=== PATIENT | male | born 1975 | race Caucasian/White ===

== ENCOUNTER 2018-01-30 18:33 | Emergency (ER) | payer OTHER ==
[~2018-01-30] VITALS: Ht 180.3 cm; Wt 85.3 kg
[~2018-01-30 18:33] MED LIST: HYDR-971 PO; PENI500T PO
[2018-01-30 18:51] VITALS: BP 128/79
--- NOTE | 2018-01-30 19:45 | PHYS DOC ---
Past History Past Medical History: No Pertinent History Past Surgical History: No Surgical History Alcohol Use: None Drug Use: None Adult General Chief Complaint Chief Complaint: RIB PAIN HPI HPI 42-year-old male presents with right rib pain. The patient states that he tripped and some mild 3 days ago and landed on his right side with his arm outstretched striking his ribs on concrete. He presents today because the pain has continued for 3 days. He has pain with deep breathing. He denies any chest pain or shortness of breath. He denies loss of consciousness or head injury. He denies fever or chills. He has no other complaints. Review of Systems Review of Systems Constitutional: Denies fever or chills [] Eyes: Denies change in visual acuity, redness, or eye pain [] HENT: Denies nasal congestion or sore throat [] Respiratory: Denies cough or shortness of breath [] Cardiovascular: No additional information not addressed in HPI [] GI: Denies abdominal pain, nausea, vomiting, bloody stools or diarrhea [] : Denies dysuria or hematuria [] Musculoskeletal: Right rib pain[] Integument: Denies rash or skin lesions [] Neurologic: Denies headache, focal weakness or sensory changes [] Endocrine: Denies polyuria or polydipsia [] All other systems were reviewed and found to be within normal limits, except as documented in this note. Allergies Allergies Allergies Coded Allergies Type Severity Reaction Last Updated Verified No Known Drug Allergies 06/19/14 No Physical Exam Physical Exam Constitutional: Well developed, well nourished, no acute distress, non-toxic appearance. [] HENT: Normocephalic, atraumatic, bilateral external ears normal, oropharynx moist, no oral exudates, nose normal. [] Eyes: PERRLA, EOMI, conjunctiva normal, no discharge. [] Neck: Normal range of motion, no tenderness, supple, no stridor. [] Cardiovascular:Heart rate regular rhythm, no murmur [] Lungs & Thorax: Tenderness over right 10th rib laterally, no ecchymosis.[] Abdomen: Bowel sounds normal, soft, no tenderness, no masses, no pulsatile masses. [] Skin: Warm, dry, no erythema, no rash. [] Back: No tenderness, no CVA tenderness. [] Extremities: No tenderness, no cyanosis, no clubbing, ROM intact, no edema. [] Neurologic: Alert and oriented X 3, normal motor function, normal sensory function, no focal deficits noted. [] Psychologic: Affect normal, judgement normal, mood normal. [] Current Patient Data Vital Signs Vital Signs Date Time Temp Pulse Resp B/P (MAP) Pulse Ox O2 Delivery O2 Flow Rate FiO2 01/30/18 18:51 98.2 58 14 97 Room Air EKG EKG [] Radiology/Procedures Radiology/Procedures [] Impressions: PA chest with 4 views of the right ribs HISTORY: Fell on January 27 with right rib pain. FINDINGS: PA view of the chest demonstrates no focal consolidation or infiltrate. No pleural effusion or pneumothorax. Cardiomediastinal silhouettes are within normal limits. No evidence of a displaced right rib fracture. IMPRESSION: No acute radiographic findings. Electronically signed by: Nga Fine MD (01/30/2018 7:58 PM) [facility] DICTATED AND SIGNED BY: NGA FINE MD DATE: 01/30/181955 CC: SHERLY SHEIKH DO; LASHA ROTHMAN Course & Med Decision Making Course & Med Decision Making Pertinent Labs and Imaging studies reviewed. (See chart for details) The patient's rib x-rays are negative for displaced fracture. He likely still has a bruised rib. He is stable for discharge at this time. I have advised she continue NSAIDs and Tylenol as needed. [] Dragon Disclaimer Dragon Disclaimer This electronic medical record was generated, in whole or in part, using a voice recognition dictation system. Departure Departure: Referrals: LASHA ROTHMAN (PCP) SHERLY SHEIKH DO Jan 30, 2018 19:45
--- NOTE | 2018-01-30 20:02 | RAD ---
PA chest with 4 views of the right ribs HISTORY: Fell on January 27 with right rib pain. FINDINGS: PA view of the chest demonstrates no focal consolidation or infiltrate. No pleural effusion or pneumothorax. Cardiomediastinal silhouettes are within normal limits. No evidence of a displaced right rib fracture. IMPRESSION: No acute radiographic findings. Electronically signed by: Rhett Fine MD (01/30/2018 7:58 PM) [facility]
== END 2018-01-30 20:15 | disposition home or self-care (01) ==
LOC: ER 18:33
DX: R07.81 Pleurodynia (principal); R07.1 Chest pain on breathing; G89.11 Acute pain due to trauma; W01.0XXA Fall on same level from slipping, tripping and stumbling without subsequent striking against object, initial encounter; Y93.89 Activity, other specified; Y92.89 Other specified places as the place of occurrence of the external cause; Y99.8 Other external cause status
CPT/HCPCS: 71101; 99284

== ENCOUNTER → 2019-11-17 | Outpatient (CLI) | payer OTHER ==
[~2019-11-17] MED LIST changes: +HYDR-3165 PO; -HYDR-971 PO
--- NOTE | 2019-11-17 17:18 | RAD ---
EXAM: Left hip, 2 views; lumbar spine, 3 views. HISTORY: Pain. COMPARISON: None. FINDINGS: Left hip: 2 views of the left hip are obtained. There is mild marginal femoral head spurring and decreased femoral head-neck offset with chronic hip impingement. There is no fracture, dislocation or subluxation. Lumbar spine: 3 views of the lumbar spine are obtained. There is lumbar levoscoliosis. There is no significant listhesis. The vertebral bodies are normal in height and the disc spaces are preserved. There is facet arthropathy at the lumbosacral junction. IMPRESSION: 1. Lumbar levoscoliosis and degenerative facet arthropathy at the lumbosacral junction. 2. Mild left hip osteoarthritis and findings consistent with chronic left hip impingement. Electronically signed by: Sarah Zendejas MD (11/17/2019 5:15 PM) [id number]
== END | disposition home or self-care (01) ==
LOC: RAD 16:18
DX: M16.12 Unilateral primary osteoarthritis, left hip (principal); M47.817 Spondylosis without myelopathy or radiculopathy, lumbosacral region; M41.86 Other forms of scoliosis, lumbar region; M25.852 Other specified joint disorders, left hip; Z68.25 Body mass index [BMI] 25.0-25.9, adult
CPT/HCPCS: 72100; 73502

== ENCOUNTER 2020-02-06 21:04 | Observation (INO) | payer OTHER ==
[~2020-02-06] VITALS: Ht 180.3 cm; Wt 81.1 kg
--- NOTE | 2020-02-06 21:09 | PHYS DOC ---
Past History Past Medical History: No Pertinent History Past Surgical History: No Surgical History Alcohol Use: None Drug Use: None Adult General HPI HPI Patient is a 44-year-old male who presents to our facility via EMS for ingestion. Patient actively suicidal, has history of suicidal attempts in the past via overdose ingesting Tylenol at age 16 and other unknown medications in his 20s. Patient has history of depression which he has been treated for on and off the last few years, has not been seeking treatment recently. Cites current long-term relationship with whom he has 3 children with as primary factor for his dysphoric mood and feelings of worthlessness. Patient reports ingesting a "handful" of his friend's 1 mg Valium tablets less than 1 hour ago an attempt to end his life. Patient was in route to local gas station to buy alcoholic beverages and was intercepted when acting somnolent prompting EMS to be called for transport to our facility for evaluation Review of Systems Review of Systems Fourteen body systems of review of systems have been reviewed. See HPI for perti nent positives and negative responses, other izquierdo all other systems are negative, non-pertinent or non-contributory Allergies Allergies Allergies Coded Allergies Type Severity Reaction Last Updated Verified No Known Drug Allergies 06/19/14 No Physical Exam Physical Exam Constitutional: Well developed, poor overall hygiene, well nourished, no acute distress, non-toxic appearance. No signs of trauma HENT: Normocephalic, atraumatic, bilateral external ears normal, oropharynx moist, no oral exudates, nose normal. Eyes: PERRLA, EOMI, conjunctiva normal, no discharge. Neck: Normal range of motion, no tenderness, supple, no stridor. Cardiovascular: Heart rate regular, sinus rhythm, no murmurs rubs or gallops Lungs & Thorax: Bilateral breath sounds clear to auscultation Abdomen: Bowel sounds normal, soft, no tenderness, no masses, no pulsatile masses. Nonsurgical abdomen, no peritoneal signs Skin: Warm, dry, no erythema, no rash. Back: No tenderness, no CVA tenderness. Extremities: No tenderness, no cyanosis, no clubbing, ROM intact, no edema. Neurologic: Alert and oriented X 3, grossly normal motor & sensory function, no focal deficits noted. Psychologic: Affect normal, judgement normal, mood normal. Current Patient Data Vital Signs Vital Signs Date Time Temp Pulse Resp B/P (MAP) Pulse Ox O2 Delivery O2 Flow Rate FiO2 02/06/20 22:47 66 16 86/67 (73) 96 Room Air 02/06/20 21:17 97.8 Lab Results Laboratory Tests Test 02/06/20 21:35 White Blood Count 9.2 x10^3/uL (4.0-11.0) Red Blood Count 5.72 x10^6/uL (4.30-5.70) Hemoglobin 16.6 g/dL (13.0-17.5) Hematocrit 49.7 % (39.0-53.0) Mean Corpuscular Volume 87 fL (79-100) Mean Corpuscular Hemoglobin 29 pg (25-35) Mean Corpuscular Hemoglobin Concent 34 g/dL (31-37) Red Cell Distribution Width 14.1 % (11.5-14.5) Platelet Count 268 x10^3/uL (140-400) Neutrophils (%) (Auto) 55 % (31-73) Lymphocytes (%) (Auto) 35 % (24-48) Monocytes (%) (Auto) 7 % (0-9) Eosinophils (%) (Auto) 2 % (0-3) Basophils (%) (Auto) 1 % (0-3) Neutrophils # (Auto) 5.1 x10^3uL (1.8-7.7) Lymphocytes # (Auto) 3.2 x10^3/uL (1.0-4.8) Monocytes # (Auto) 0.7 x10^3/uL (0.0-1.1) Eosinophils # (Auto) 0.2 x10^3/uL (0.0-0.7) Basophils # (Auto) 0.1 x10^3/uL (0.0-0.2) Sodium Level 139 mmol/L (136-145) Potassium Level 3.4 mmol/L (3.5-5.1) Chloride Level 104 mmol/L (98-107) Carbon Dioxide Level 24 mmol/L (21-32) Anion Gap 11 (6-14) Blood Urea Nitrogen 19 mg/dL (8-26) Creatinine 0.9 mg/dL (0.7-1.3) Estimated GFR (Cockcroft-Gault) 90.8 BUN/Creatinine Ratio 21 (6-20) Glucose Level 107 mg/dL (70-99) Calcium Level 9.7 mg/dL (8.5-10.1) Total Bilirubin 0.3 mg/dL (0.2-1.0) Aspartate Amino Transf (AST/SGOT) 14 U/L (15-37) Alanine Aminotransferase (ALT/SGPT) 24 U/L (16-63) Alkaline Phosphatase 106 U/L (46-116) Total Protein 7.4 g/dL (6.4-8.2) Albumin 4.1 g/dL (3.4-5.0) Albumin/Globulin Ratio 1.2 (1.0-1.7) Salicylates Level 3.3 mg/dL (2.8-20.0) Salicylate Last Dose Date 02-06-20 Salicylate Last Dose Time 2129 Acetaminophen Level < 2.0 mcg/mL (10-30) Acetaminophen Last Dose Date 02-06-20 Acetaminophen Last Dose Time 2129 Ethyl Alcohol Level < 10 mg/dL (0-10) EKG EKG EKG ordered and interpreted by myself at 2125 hrs. as sinus rhythm at 78 bpm, unremarkable intervals, left axis deviation, no ischemic findings, no STEMI Radiology/Procedures Radiology/Procedures PROCEDURE: PORTABLE CHEST 1V Exam: Chest one view INDICATION: Overdose TECHNIQUE: Frontal view of the chest Comparisons: 01/30/2018 FINDINGS: The cardiomediastinal silhouette and pulmonary vessels are within normal limits. Linear bandlike opacity at the left lung base likely representing atelectasis. No pleural effusion IMPRESSION: Left basilar atelectasis. Electronically signed by: Isac Jacobs MD (02/06/2020 9:40 PM) [facility] Heart Score HEART Score for Chest Pain: HEART Score for Chest Pain Response (Comments) Value History Slighlty/Non-Suspicious 0 ECG Normal 0 Age < 45 0 Risk Factors No Risk Factors 0 Total 0 Risk Factors: Risk Factors: DM, Current or recent (<one month) smoker, HTN, HLP, family history of CAD, obesity. Risk Scores: Risk Factors: DM, Current or recent (<one month) smoker, HTN, HLP, family history of CAD, obesity. Course & Med Decision Making Course & Med Decision Making Ambulatory patient seen on immediate ER arrival with EMS present ABCs grossly nonconcerning Comprehensive history and physical exam obtained, subsequent tox work-up pursued Poison control called 2105 hrs., case discussed, reviewed need for comprehensive toxic ingestion work-up and observation. Throughout course of ER stay, patient became more somnolent and hypotensive which did improve with supplemental IV fluids. Given that patient is not medically cleared at this time and it is unknown how long he will metabolize the unknown amount of Valium ingested, I feel he will need to be admitted Dr. Tao was contacted and case discussed, he agreed to admit patient under his care for continued medical management with plans for psychiatric evaluation tomorrow morning once medically cleared. Patient updated of this decision and amenable, all questions and concerns addressed prior to ER departure to [facility] for further medical observation and eventual psychiatric clearance Dragon Disclaimer Dragon Disclaimer This electronic medical record was generated, in whole or in part, using a voice recognition dictation system. Departure Departure: Impression: Primary Impression: Suicidal overdose Additional Impression: History of depression Disposition: ADMITTED INPT THIS HOSP ([facility]) Admitting Physician: Markus Tao Condition: STABLE Referrals: LASHA ROTHMAN (PCP) Problem Qualifiers NEETU RATLIFF DO Feb 06, 2020 21:09
--- NOTE | 2020-02-06 21:43 | RAD ---
Exam: Chest one view INDICATION: Overdose TECHNIQUE: Frontal view of the chest Comparisons: 01/30/2018 FINDINGS: The cardiomediastinal silhouette and pulmonary vessels are within normal limits. Linear bandlike opacity at the left lung base likely representing atelectasis. No pleural effusion IMPRESSION: Left basilar atelectasis. Electronically signed by: Isac Jacobs MD (02/06/2020 9:40 PM) [facility]
[2020-02-06 21:54] LABS: CALCIUM 9.7 mg/dL (8.5-10.1); CREATININE 0.9 mg/dL (0.7-1.3); GFR 90.8; POTASSIUM 3.4 mmol/L (3.5-5.1)
[2020-02-06 21:58] LABS: ACETAMIN < 2.0 mcg/mL (10-30); BASO # 0.1 x10^3/uL (0.0-0.2); BASO % 1 % (0-3); EOS # 0.2 x10^3/uL (0.0-0.7); EOS % 2 % (0-3); HEMATOCRIT 49.7 % (39.0-53.0); HEMOGLOBIN 16.6 g/dL (13.0-17.5); LYMPH # 3.2 x10^3/uL (1.0-4.8); LYMPH % 35 % (24-48); MEAN CORPUSCULAR HEMOGLOBIN 29 pg (25-35); MEAN CORPUSCULAR HGB CONC 34 g/dL (31-37); MEAN CORPUSCULAR VOLUME 87 fL (79-100); MONO # 0.7 x10^3/uL (0.0-1.1); MONO % 7 % (0-9); NEUT # 5.1 x10^3uL (1.8-7.7); NEUT % 55 % (31-73); PLATELET COUNT 268 x10^3/uL (140-400); RED BLOOD COUNT 5.72 x10^6/uL (4.30-5.70); RED CELL DISTRIBUTION WIDTH 14.1 % (11.5-14.5); SALIC 3.3 mg/dL (2.8-20.0); WHITE BLOOD COUNT 9.2 x10^3/uL (4.0-11.0)
[2020-02-06 22:00] LABS: ALBUMIN 4.1 g/dL (3.4-5.0); ALBUMIN/GLOBULIN RATIO 1.2 (1.0-1.7); ETHANOL < 10 mg/dL (0-10); TOTAL BILIRUBIN 0.3 mg/dL (0.2-1.0); TOTAL PROTEIN 7.4 g/dL (6.4-8.2)
--- NOTE | 2020-02-06 22:57 | EKG ---
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
[2020-02-06] MEDS ORDERED: IV NORMAL SALINE 1,000ML 1,000 ML IV ONE (23:00)
[2020-02-06] MEDS ORDERED: FLUMAZENIL 0.5 MG/5 ML VIAL. IV ONE (23:30)
[2020-02-07 00:35] VITALS: BP 108/70
--- NOTE | 2020-02-07 00:35 | NUR ---
Pt admitted to ICU bed 3 via gurney, accompanied by EMS and nursing staff. Pt able to ambulate from gurney to bed independently, steady gait noted. Pt A&Ox4, but noted to be drowsy. Pt is calm and cooperative with staff & cares, but did state that he still had SI thoughts. Pt here for SI/SA and purposeful overdose of "handful of Valium." Pt reports recent increased feelings of depression r/t home stressors and 's decreased functioning r/t MS & CA diagnosis. Pt reports a hx of SA with OD at the age of 16 or 17. Home medications reviewed over the phone with spouse (Rupal) from Rx bottles. Admission assessment and health history reviewed with pt. VSS. POC discussed with pt, mother (Vania) and spouse (Rupal), all verbalized understanding. 1to1 staff at [facility]. Pt was given written information regarding hospital policies, unit procedures and contact persons. Valuables were checked/logged and kept out at nurses station in 2 green belonging bags.
[2020-02-07] MEDS ORDERED: TIZA4TAB2 PO (01:35)
[2020-02-07] MEDS ORDERED: VENL150C6 PO (01:35)
[2020-02-07] MEDS ORDERED: GABA600T7 PO (01:35)
[2020-02-07 03:50] VITALS: BP 105/60
[2020-02-07 06:00] VITALS: BP 91/62
--- NOTE | 2020-02-07 09:59 | NUR ---
0810 pt alert and oriented x4, expresses no suicide thoughts, vital signs stable. 0920 ok to consult [facility] for suicide assessment. Addendum: 02/07/20 at 1030 by OMAR KEY RN 1028 pt wants to be discharged, educated pt on hospital protocols for suicide attempts, [facility] called to set up suicide screen, awaiting a call back for fax number to submit pt info. discussed with pt and he agreed with current plan of care. Addendum: 02/07/20 at 1255 by OMAR KEY RN 1230 pt assessed by [facility]-pt ok to go home, recommended follow up with [facility] out pt, go to ER immediately if feelings of suicide, spend time with family. pt of 1:1 observation. Addendum: 02/07/20 at 1344 by OMAR KEY RN 1315 Pt alert and oriented x4, discharge ppwrk given. pt verbally said he will follow up with [facility], and signed [facility] ppwrk and discharge ppwrk. ride given to pt by security to gas station down the [place].
[2020-02-07 10:32] LABS: BARBITURATES NEG (NEG); BENZODIAZEPINES POS (NEG); CANNABINOIDS POS (NEG); COCAINE NEG (NEG); METHADONE POS (NEG); OPIATES NEG (NEG); PHENCYCLIDINE NEG (NEG)
[2020-02-07 10:35] LABS: AMPHETAMINE/METHAMPHETAMINE NEG (NEG)
[2020-02-07 11:00] VITALS: BP 101/58
--- NOTE | 2020-02-07 11:54 | HP ---
ADMIT DATE: ATTENDING PHYSICIAN: Dr. Uriostegui. CHIEF COMPLAINT: Drug overdose. HISTORY OF PRESENT ILLNESS: The patient is a 44-year-old gentleman admitted to the ED with suicide gesture. He took an unspecified amount of Valium. They were not very high dosage as he was asleep. He did not require any resuscitation. He has a longstanding history of depression, several suicide drug ingestion attempts at age 16 and again is his 20s. He has been involved . He has 3 children. He is not working at this time. He was on route to the [employer] to buy alcohol ____ when acting somnolent. PAST MEDICAL HISTORY: Significant for methadone use, chronic back pain resulting methadone. He has been fired from his pain doctor for other substance abuse. SOCIAL HISTORY: He drinks alcohol, uses marijuana. CURRENT PRESCRIPTION MEDICINES: None. He has been using his common-law 's meds. ALLERGIES: He has no known drug allergies. FAMILY HISTORY: He has no contact with his father. Mother is alive at age 76. REVIEW OF SYSTEMS: Significant for chronic pain syndrome and states he is not suicidal at this time. All other systems reviewed and determined to be negative. PHYSICAL EXAMINATION: GENERAL: When I saw him, this is a pleasant young gentleman. INITIAL VITAL SIGNS: Showed blood pressure 108/70, pulse was 68 and regular. He was afebrile, oxygen saturation 100% on room air. HEENT: Head is without trauma. Pupils are reactive. Sclerae nonicteric. Oropharynx is clear. NECK: Supple, no bruits. LUNGS: Otherwise clear. CARDIOVASCULAR: Showed regular heart tones. No gallops. Peripheral pulses are palpable and full. ABDOMEN: Soft, scaphoid, nontender, no organomegaly. EXTREMITIES: Showed no cyanosis or edema. NEUROLOGIC: Focally intact. Affect is fair. He denies any suicidal ideation. Chest x-ray is clear with minimal atelectasis at the base. LABORATORY DATA: Hemoglobin is 16.6 g/dL with white count of 9200. Chemistry panel unremarkable. Transaminases are normal. ASSESSMENT: 1. A 44-year-old gentleman with suicide gesture, took an unspecified amount of someone else's Valium. 2. Major depression with anxiety. 3. Polysubstance abuse. 4. Chronic pain syndrome with a history of methadone maintenance. PLAN: 1. Admit to the inpatient unit. 2. Diet as tolerated. 3. life sciences manager and [facility] to see the patient to determine whether he is safe for discharge. LILIANE URIOSTEGUI MD DR: SIDDHARTH/kaylene JOB#: [id number] / [id number]
[2020-02-07 12:37] LABS: BACTERIA,URINE 0 /HPF (0-FEW); BILIRUBIN,URINE NEG (NEG); CLARITY,URINE CLEAR; COLOR,URINE YELLOW; GLUCOSE,URINE NEG (NEG); NITRITE,URINE NEG (NEG); RBC,URINE OCC /HPF (0-2); SQUAMOUS EPITHELIAL CELL,UR OCC /LPF; UROBILINOGEN,URINE 0.2 mg/dL (0.2 mg/dL); WBC,URINE OCC /HPF (0-4)
--- NOTE | 2020-02-07 13:26 | DS ---
DATE OF DISCHARGE: 02/07/2020 ATTENDING PHYSICIAN: Dr. Uriostegui. FINAL DISCHARGE DIAGNOSES: 1. A 44-year-old gentleman with suicide attempt, taking an unspecified amount of Valium. 2. Major depression with anxiety. 3. Polysubstance abuse. 4. Chronic pain syndrome with history of methadone maintenance. HISTORY OF PRESENT ILLNESS: This 44-year-old gentleman took an unspecified amount of Valium that was someone else's. It was not a very high dose. He was on his way to the [employer] store. There is a longstanding history of depression, methadone use in the past and polysubstance abuse. He was admitted for further treatment and evaluation. PHYSICAL EXAMINATION: Please see the dictated note. PERTINENT LABORATORY AND X-RAY STUDIES: The chest x-ray on admission showed some atelectasis, but no acute infiltrates identified. Hemoglobin is maintained at 16.6 g/dL, white count 9200. Electrolytes, BUN and creatinine, blood sugar are all within normal range. COURSE IN HOSPITAL: The patient was admitted. He woke up shortly thereafter. He had some IV hydration. He was seen by the [facility]. They interviewed him and felt that he was not suicidal. Therefore, they recommended discharging home. He was stable from a medical standpoint. He was fully ambulatory and alert when I saw him. Blood pressure was 101/58, pulse regular, afebrile, oxygen saturation 96%. On the second hospital day, the patient was discharged home, no new meds. Strong encouragement to follow up with his regular primary care physician. LILIANE URIOSTEGUI MD DR: SIDDHARTH/kaylene JOB#: [id number] / [id number]
== END 2020-02-07 13:10 | disposition home or self-care (01) ==
LOC: ER 21:04 → INTOOBSV 23:25 → ICU 23:25
PROVIDERS: ADMIT Hospitalist; ATTEND Hospitalist
DX: T42.4X2A Poisoning by benzodiazepines, intentional self-harm, initial encounter (principal); F41.8 Other specified anxiety disorders; G89.4 Chronic pain syndrome; F12.90 Cannabis use, unspecified, uncomplicated; F17.210 Nicotine dependence, cigarettes, uncomplicated
CPT/HCPCS: 36415; 71045; 80053; 80307; 80329; 81001; 85025; 93005; 96360; 99285; 99406; G0378; G0480; J7030; G0379

== ENCOUNTER 2020-04-06 00:06 | Emergency (ER) | payer OTHER ==
[~2020-04-06] VITALS: Ht 180.3 cm; Wt 85.1 kg
[~2020-04-06 00:06] MED LIST changes: +GABA600T7 PO; +TIZA4TAB2 PO; +VENL150C6 PO
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
[2020-04-06] MEDS ORDERED: TETANUS AND DIPHTHERIA TOX/PF 0.5 ML VIAL. VAX IM ONE (01:00)
[2020-04-06] MEDS ORDERED: BUPIVACAINE MPF 0.5% 10 ML VIAL. IJ ONE (01:00)
[2020-04-06] MEDS ORDERED: LIDOCAINE 2% 20 ML VIAL. IJ ONE (01:00)
[2020-04-06] MEDS ORDERED: DIPH,PERTUSS(ACELL),TET VAC/PF 0.5 ML SYRINGE. VAX IM ONE (01:30)
[2020-04-06] MEDS ORDERED: cefTRIAXone IM 1 GM VIAL IM ONE (01:30)
[2020-04-06] MEDS ORDERED: CEPH-264 PO (02:20)
[2020-04-06 02:34] VITALS: BP 132/89
--- NOTE | 2020-04-06 04:00 | RAD ---
INDICATION: Reason: cut.and blunt trauma / Spl. Instructions: / History: COMPARISON: None. IMPRESSION: Left hand: 3 views obtained. Comminuted fracture of the second middle phalanx. Electronically signed by: Michael Xiao MD (04/06/2020 3:58 AM) [id number]
== END 2020-04-06 02:29 | disposition home or self-care (01) ==
LOC: ER 00:06
DX: S62.621A Displaced fracture of middle phalanx of left index finger, initial encounter for closed fracture (principal); R20.2 Paresthesia of skin; R06.2 Wheezing; F32.9 Major depressive disorder, single episode, unspecified; F17.210 Nicotine dependence, cigarettes, uncomplicated; W26.8XXA Contact with other sharp object(s), not elsewhere classified, initial encounter; Y93.89 Activity, other specified; Y92.89 Other specified places as the place of occurrence of the external cause; Y99.8 Other external cause status
CPT/HCPCS: 12001; 73130; 90471; 90715; 96372; 99283; J0696

== ENCOUNTER → 2020-05-17 | Outpatient (CLI) | payer OTHER ==
[~2020-05-17] MED LIST changes: +CEPH-264 PO
--- NOTE | 2020-05-17 17:53 | RAD ---
INDICATION: Reason: 2ND DIGIT PAIN / Spl. Instructions: / History: COMPARISON: April 06, 2020 IMPRESSION: Left second digit of hand: 3 views obtained. Repeat demonstration of comminuted fracture of the secon d middle phalanx which appears mildly displaced. The fracture line is still seen without osseous brid ging at this time. Electronically signed by: Michael Xiao MD (05/17/2020 5:50 PM) [id number]
== END ==
LOC: DXRAD 14:13
PROVIDERS: ATTEND Physician Assistant
DX: S62.623A Displaced fracture of middle phalanx of left middle finger, initial encounter for closed fracture (principal); X58.XXXA Exposure to other specified factors, initial encounter; Y93.89 Activity, other specified; Y92.89 Other specified places as the place of occurrence of the external cause; Y99.8 Other external cause status
CPT/HCPCS: 73140

== ENCOUNTER 2020-08-28 04:12 | Emergency (ER) | payer OTHER ==
[~2020-08-28] VITALS: Ht 180.3 cm; Wt 85.1 kg
--- NOTE | 2020-08-28 04:48 | PHYS DOC ---
Past History Past Medical History: No Pertinent History, Depression, Other Additional Past Medical Histor: SCIATICA Past Surgical History: No Surgical History Smoking: Cigarettes Alcohol Use: None Drug Use: None General Adult EDM: Chief Complaint: FLANK PAIN HPI: HPI: 45-year-old male presents with left flank pain. It started suddenly around 3:30 in the morning. The patient was asleep when it began. He was feeling completely normal prior to this. The pain was a cramping sensation in the left flank that radiated around to the left groin. He denies dysuria or increased urinary frequency. He has not had kidney stones in the past. Denies any falls or trauma. Denies fever or chills. He has no other concerns at this time. Review of Systems: Review of Systems: Constitutional: Denies fever or chills Eyes: Denies change in visual acuity HENT: Denies nasal congestion or sore throat Respiratory: Denies cough or shortness of breath Cardiovascular: Denies chest pain or edema GI: Denies abdominal pain, nausea, vomiting, bloody stools or diarrhea : Denies dysuria Musculoskeletal: left flank pain Integument: Denies rash Neurologic: Denies headache, focal weakness or sensory changes Endocrine: Denies polyuria or polydipsia Lymphatic: Denies swollen glands Psychiatric: Denies depression or anxiety Current Medications: Current Meds: Current Medications Medications (Trade) Dose Ordered Sig/Scotty Start Time Stop Time Status Last Admin Dose Admin Ondansetron HCl (Zofran) 4 mg 1X ONCE 08/28/20 04:45 08/28/20 04:46 UNV Sodium Chloride 1,000 ml @ 1,000 mls/hr 1X ONCE 08/28/20 04:45 08/28/20 05:44 UNV Allergies: Allergies: Allergies Coded Allergies Type Severity Reaction Last Updated Verified No Known Drug Allergies 04/06/20 No Physical Exam: PE: Constitutional: Well developed, well nourished, no acute distress, non-toxic appearance. [] HENT: Normocephalic, atraumatic, bilateral external ears normal, oropharynx moist, no oral exudates, nose normal. [] Eyes: PERRLA, EOMI, conjunctiva normal, no discharge. [] Neck: Normal range of motion, no tenderness, supple, no stridor. [] Cardiovascular:Heart rate regular rhythm, no murmur [] Lungs & Thorax: Bilateral breath sounds clear to auscultation [] Abdomen: Bowel sounds normal, soft, no tenderness, no masses, no pulsatile mass es. [] Skin: Warm, dry, no erythema, no rash. [] Back: No tenderness, no CVA tenderness. [] Extremities: No tenderness, no cyanosis, no clubbing, ROM intact, no edema. [] Neurologic: Alert and oriented X 3, normal motor function, normal sensory function, no focal deficits noted. [] Psychologic: Affect normal, judgement normal, mood normal. [] Current Patient Data: Vital Signs: Vital Signs Date Time Temp Pulse Resp B/P (MAP) Pulse Ox O2 Delivery O2 Flow Rate FiO2 08/28/20 04:12 97.4 54 18 140/92 (108) 98 Room Air EKG: EKG: [] Radiology/Procedures: Radiology/Procedures: [] Impressions: EXAM: CT ABDOMEN/PELVIS WITHOUT CONTRAST. HISTORY: Left flank pain. TECHNIQUE: Computed tomography of the abdomen and pelvis was performed without intravenous contrast. One or more of the following individualized dose reduction techniques were utilized for this examination: 1. Automated exposure control. 2. Adjustment of the mA and/or kV according to patient size. 3. Use of iterative reconstruction technique. COMPARISON: None. FINDINGS: Lung windows through the visualized portions of the bases reveal a small hiatal hernia. Bone windows reveal no suspicious lesions. A calculus in the left proximal ureter measures 2.5 mm. There is mild left pelviectasis. There are no additional renal or ureteral calculi bilaterally. There are no suspicious renal lesions without contrast. There is mild bladder wall thickening. The colon is decompressed but there is mild wall thickening in the ascending and sigmoid portions. The appendix is not inflamed. There is no small bowel obstruction. The pancreas, adrenal glands, liver, gallbladder and spleen are unremarkable without contrast. There are no pathologically enlarged lymph nodes. IMPRESSION: 1. 2.5 mm left proximal ureteral calculus with mild proximal obstructive findings. 2. Nonfocal bladder wall thickening suggests chronic outlet obstruction or inflammation. Correlate with urinalysis. 3. Right and left colonic wall thickening appears chronic. Correlate for a history of inflammatory bowel disease or other causes of colitis. 3. Small hiatal hernia. Electronically signed by: Rae Calderón MD (08/28/2020 5:27 AM) [facility] DICTATED AND SIGNED BY: YANA CALDERÓN MD DATE: 08/28/20 0517 CC: SHERLY SHEIKH DO; AIMEE ORTIZ MD ~MTH0 0 Heart Score: C/O Chest Pain: N/A Risk Factors: Risk Factors: DM, Current or recent (<one month) smoker, HTN, HLP, family history of CAD, obesity. Risk Scores: Score 0 - 3: 2.5% MACE over next 6 weeks - Discharge Home Score 4 - 6: 20.3% MACE over next 6 weeks - Admit for Clinical Observation Score 7 - 10: 72.7% MACE over next 6 weeks - Early Invasive Strategies Course & Med Decision Making: Course & Med Decision Making Pertinent Labs and Imaging studies reviewed. (See chart for details) The patient CT scan shows a 2-1/2 mm stone. We have given the patient Toradol and morphine for pain. I will discharge him with a prescription for [place] 5/325 and Flomax. He is stable for discharge at this time. [] Dragon Disclaimer: Dragon Disclaimer: This electronic medical record was generated, in whole or in part, using a voice recognition dictation system. Departure Departure: Impression: Primary Impression: Ureterolithiasis Disposition: HOME / SELF CARE / HOMELESS Condition: STABLE Referrals: AIMEE ORTIZ MD (PCP) Patient Instructions: Kidney Stones, [id number] Scripts Tamsulosin Hcl (FLOMAX) 0.4 Mg Cap.er.24h 1 CAP PO DAILY for kidney stone for 14 Days, #14 CAP 11 Refills Prov: SHERLY SHEIKH DO 08/28/20 Hydrocodone/Acetaminophen (Hydrocodone-Acetamin 5-325 mg) 1 Each Tablet 1 EACH PO Q4-6HRS PRN for PAIN, #14 TAB Prov: SHERLY SHEIKH DO 08/28/20 SHERLY SHEIKH DO August 28, 2020 04:48
[2020-08-28] MEDS ORDERED: IV NORMAL SALINE 1,000ML 1,000 ML IV ONE (05:00)
[2020-08-28] MEDS ORDERED: ONDANSETRON PF 4 MG/2 ML VIAL. IVP ONE (05:00)
[2020-08-28] MEDS ORDERED: KETOROLAC 30 MG/ML VIAL. IVP ONE (05:00)
--- NOTE | 2020-08-28 05:30 | RAD ---
EXAM: CT ABDOMEN/PELVIS WITHOUT CONTRAST. HISTORY: Left flank pain. TECHNIQUE: Computed tomography of the abdomen and pelvis was performed without intravenous contrast. One or more of the following individualized dose reduction techniques were utilized for this examinat ion: 1. Automated exposure control. 2. Adjustment of the mA and/or kV according to patient size. 3. Use of iterative reconstruction technique. COMPARISON: None. FINDINGS: Lung windows through the visualized portions of the bases reveal a small hiatal hernia. Bon e windows reveal no suspicious lesions. A calculus in the left proximal ureter measures 2.5 mm. There is mild left pelviectasis. There are no additional renal or ureteral calculi bilaterally. There are no suspicious renal lesions without cont rast. There is mild bladder wall thickening. The colon is decompressed but there is mild wall thickening in the ascending and sigmoid portions. Th e appendix is not inflamed. There is no small bowel obstruction. The pancreas, adrenal glands, liver, gallbladder and spleen are unremarkable without contrast. There are no pathologically enlarged lymph nodes. IMPRESSION: 1. 2.5 mm left proximal ureteral calculus with mild proximal obstructive findings. 2. Nonfocal bladder wall thickening suggests chronic outlet obstruction or inflammation. Correlate wi th urinalysis. 3. Right and left colonic wall thickening appears chronic. Correlate for a history of inflammatory alanna wel disease or other causes of colitis. 3. Small hiatal hernia. Electronically signed by: Rae Calderón MD (08/28/2020 5:27 AM) [facility]
[2020-08-28] MEDS ORDERED: MORPHINE SULFATE 4 MG/ML DISP.SYRIN. ONE (05:45)
[2020-08-28] MEDS ORDERED: HYDR-2759 PO (05:51)
[2020-08-28] MEDS ORDERED: TAMS0.4C97 PO (05:51)
[2020-08-28 05:57] LABS: BASO # 0.1 x10^3/uL (0.0-0.2); BASO % 1 % (0-3); EOS # 0.3 x10^3/uL (0.0-0.7); EOS % 3 % (0-3); HEMATOCRIT 50.2 % (39.0-53.0); HEMOGLOBIN 16.9 g/dL (13.0-17.5); LYMPH # 2.7 x10^3/uL (1.0-4.8); LYMPH % 36 % (24-48); MEAN CORPUSCULAR HEMOGLOBIN 30 pg (25-35); MEAN CORPUSCULAR HGB CONC 34 g/dL (31-37); MEAN CORPUSCULAR VOLUME 90 fL (79-100); MONO # 0.6 x10^3/uL (0.0-1.1); MONO % 8 % (0-9); NEUT % 52 % (31-73); PLATELET COUNT 273 x10^3/uL (140-400); RED BLOOD COUNT 5.58 x10^6/uL (4.30-5.70); RED CELL DISTRIBUTION WIDTH 14.5 % (11.5-14.5); WHITE BLOOD COUNT 7.7 x10^3/uL (4.0-11.0)
[2020-08-28] MEDS ORDERED: MORPHINE SULFATE 4 MG/ML DISP.SYRIN. IV ONE (06:00)
[2020-08-28 06:03] LABS: BACTERIA,URINE 0 /HPF (0-FEW); BILIRUBIN,URINE NEG (NEG); CLARITY,URINE HAZY; COLOR,URINE YELLOW; GLUCOSE,URINE NEG (NEG); NITRITE,URINE NEG (NEG); RBC,URINE >40 /HPF (0-2); SQUAMOUS EPITHELIAL CELL,UR OCC /LPF; UROBILINOGEN,URINE 0.2 mg/dL (0.2 mg/dL); WBC,URINE OCC /HPF (0-4)
[2020-08-28 06:04] LABS: CALCIUM 8.8 mg/dL (8.5-10.1); CREATININE 0.9 mg/dL (0.7-1.3); GFR 90.4; POTASSIUM 3.7 mmol/L (3.5-5.1)
[2020-08-28 06:10] LABS: ALBUMIN 3.9 g/dL (3.4-5.0); ALBUMIN/GLOBULIN RATIO 1.1 (1.0-1.7); TOTAL BILIRUBIN 0.3 mg/dL (0.2-1.0); TOTAL PROTEIN 7.4 g/dL (6.4-8.2)
[2020-08-28 06:30] VITALS: BP 99/60
== END 2020-08-28 06:40 | disposition home or self-care (01) ==
LOC: ER 04:12
DX: N20.1 Calculus of ureter (principal); F17.210 Nicotine dependence, cigarettes, uncomplicated; Z87.442 Personal history of urinary calculi
CPT/HCPCS: 36415; 74176; 80053; 81001; 85025; 96361; 96374; 96375; 99284; J1885; J2270; J2405; J7030

== ENCOUNTER 2020-10-13 17:00 | Emergency (ER) | payer OTHER ==
[~2020-10-13] VITALS: Ht 180.3 cm; Wt 84.9 kg
[~2020-10-13 17:00] MED LIST changes: +HYDR-2759 PO; +TAMS0.4C97 PO
[2020-10-13] MEDS ORDERED: HYDR-2759 PO (17:29)
--- NOTE | 2020-10-13 17:29 | PHYS DOC ---
Past History Past Medical History: Other Additional Past Medical Histor: SCOLIOSIS Past Surgical History: No Surgical History Smoking: Cigarettes Additional Smoking Information: PACK/DAY Alcohol Use: None Drug Use: None Adult General Chief Complaint Chief Complaint: DENTAL PROBLEM HPI HPI Patient is a 45-year-old male presenting for dental pain. This is an acute on chronic issue. Has extensive history of poor dentition. Denies any recent trauma or known exacerbating factors but reports approximately 7 days ago having worsening pain to bottom left molar. He has been taking Tylenol and ibuprofen without significant relief. Reports he had been trying to get into see a dentist at the end of this past week but was unsuccessful and scheduled for this upcoming week. He is here today for pain control. No fever, exudates, swelling of gums or face Review of Systems Review of Systems Fourteen body systems of review of systems have been reviewed. See HPI for pertinent positives and negative responses, other izquierdo all other systems are negative, non-pertinent or non-contributory Allergies Allergies Allergies Coded Allergies Type Severity Reaction Last Updated Verified No Known Drug Allergies 04/06/20 No Physical Exam Physical Exam General: Appears well, non toxic, and comfortable Skin: Warm, dry. Normal for ethnicity. Head: Atraumatic. EENT: PERRLA. Moist mucous membranes. Uvula midline. No trismus. Maintaining secretions. No phonation changes. No facial swelling. No periapical abscess. Patient has numerous dental caries none of which look acutely infected, area of significant pain located at tooth #18 without any obvious signs or symptoms of abscess or other acute infection Neck: Trachea midline. Normal ROM. No stridor. Respiratory: Normal WOB. No tachypnea. Cardiovascular: Normal peripheral perfusion. Musculoskeletal: Normal ROM. Neuro: Alert and oriented x 4. MAEE. Lymph: No cervical LAD. Psych: Normal affect and mood. Current Patient Data Vital Signs Vital Signs Date Time Temp Pulse Resp B/P (MAP) Pulse Ox O2 Delivery O2 Flow Rate FiO2 10/13/20 17:10 98.3 67 20 121/74 (90) 98 Room Air EKG EKG [] Radiology/Procedures Radiology/Procedures [] Heart Score C/O Chest Pain: No Risk Factors: Risk Factors: DM, Current or recent (<one month) smoker, HTN, HLP, family history of CAD, obesity. Risk Scores: Risk Factors: DM, Current or recent (<one month) smoker, HTN, HLP, family history of CAD, obesity. Course & Med Decision Making Course & Med Decision Making ABCs unremarkable. I disclosed entirety of ER findings and discussed most likely diagnosis of dental pain without any obvious acute infection or other need for antibiotic. I discuss role of short-term pain control with definitive dental appointment advised this upcoming week. Strict return precautions were also discussed at length with good understanding by patient. Patient voiced understanding and agreement with the plan. Patient knows to come back for repeat evaluation if concerning signs or symptoms present prior to outpatient follow- up. Hemodynamically stable, ambulatory and well-appearing at time of disp osition. Dragon Disclaimer Dragon Disclaimer This electronic medical record was generated, in whole or in part, using a voice recognition dictation system. Departure Departure: Impression: Primary Impression: Pain, dental Disposition: HOME / SELF CARE / HOMELESS Condition: STABLE Referrals: AIMEE ORTIZ MD (PCP) Additional Instructions: You were seen for dental pain. There does not appear to be any infection at this time. Take Ibuprofen (600-800mg) and Tylenol (500-650mg) alternating every 4-6 hours to help with inflammation and pain while you contact a dentist for further care. You have been educated on prescribed pain medication that should be reserved for severe pain only. Please take these as prescribed due to risk stated such as respiratory failure, addiction and potentially . You should return to the ED if you develop worsening pain, fever > 101, swelling, redness, or any other new or concerning symptoms. Unfortunately, your pain is not likely to improve without seeing a dentist for further evaluation and treatment of your poor dentition and dental caries. Scripts Hydrocodone/Acetaminophen (Hydrocodone-Acetamin 5-325 mg) 1 Each Tablet 1 EACH PO Q6-8H for SEVERE PAIN, #5 TAB Prov: NEETU RATLIFF DO 10/13/20 NEETU RATLIFF DO Oct 13, 2020 17:29
[2020-10-13] MEDS ORDERED: HYDROcodone/APAP 5/325MG 1 TAB TABLET PO ONE (17:30)
[2020-10-13 17:43] VITALS: BP 126/74
== END 2020-10-13 17:43 | disposition home or self-care (01) ==
LOC: ER 17:00
DX: K08.89 Other specified disorders of teeth and supporting structures (principal); F17.210 Nicotine dependence, cigarettes, uncomplicated
CPT/HCPCS: 99283

== ENCOUNTER 2020-10-16 18:29 | Emergency (ER) | payer OTHER ==
[~2020-10-16] VITALS: Ht 180.3 cm; Wt 84.0 kg
[2020-10-16 18:50] VITALS: BP 138/79
[2020-10-16] MEDS ORDERED: AMOXICILLIN/K CLAV 875/125MG TABLET. PO ONE (19:15)
[2020-10-16] MEDS ORDERED: HYDROcodone/APAP 5/325MG 1 TAB TABLET PO ONE (19:15)
[2020-10-16] MEDS ORDERED: IBUPROFEN 600 MG TABLET. PO ONE (19:15)
--- NOTE | 2020-10-16 19:20 | RAD ---
XR FOOT_RIGHT 3 VIEWS History: Reason: heel pain / Spl. Instructions: / History: Technique: 3 views right foot Comparison: None. Findings: Normal alignment. No fracture. Dorsal calcaneal views right. Mild ankle DJD. Medial foot soft tissue swelling. Impression: 1. No acute osseous abnormality. 2. Medial hind foot soft tissue swelling. Electronically signed by: Manoj Hughes DO (10/16/2020 7:17 PM) [facility]
[2020-10-16] MEDS ORDERED: AMOX1TAB61 PO (20:26)
[2020-10-16] MEDS ORDERED: HYDR-2759 PO (20:26)
--- NOTE | 2020-10-16 20:27 | PHYS DOC ---
Past History Past Medical History: Other Additional Past Medical Histor: SCOLIOSIS Past Surgical History: No Surgical History Smoking: Cigarettes Alcohol Use: None Drug Use: None Adult General Chief Complaint Chief Complaint: DENTAL PROBLEM HPI HPI Patient is a 45-year-old male who presents with complaints of dental pain and pain in his heel. States that he has very bad teeth and has a broken tooth on his upper left that has been hurting, 7 out of 10, sharp in nature with no radiation. States he was in the emergency department a couple days ago and got some relief but has not been able to find a dentist yet. States he also has some pain in his heel, 5 out of 10, dull aching nature has been going on for couple of weeks. Denies any recent traumas, travels, fevers, pain or trouble swallowing, chest pain, shortness of breath, abdominal pain, nausea, vomiting. Review of Systems Review of Systems Review of systems otherwise unremarkable except noted in HPI Current Medications Current Medications Current Medications Medications (Trade) Dose Ordered Sig/Scotty Start Time Stop Time Status Last Admin Dose Admin Acetaminophen/ Hydrocodone Bitart (Lortab 5/325) 2 tab 1X ONCE 10/16/20 19:15 10/16/20 19:16 DC 10/16/20 19:19 2 TAB Amoxicillin/ Clavulanate Potassium (Augmentin 875/ 125mg) 1 tab 1X ONCE 10/16/20 19:15 10/16/20 19:16 DC 10/16/20 19:19 1 TAB Ibuprofen (Motrin) 600 mg 1X ONCE 10/16/20 19:15 10/16/20 19:16 DC 10/16/20 19:19 600 MG Allergies Allergies Allergies Coded Allergies Type Severity Reaction Last Updated Verified No Known Drug Allergies 04/06/20 No Physical Exam Physical Exam Constitutional: Well developed, well nourished, no acute distress, non-toxic appearance. [] HENT: Normocephalic, atraumatic, general poor dentition with multiple dental caries, multiple lost teeth, and multiple portions/partial teeth with tooth in question on upper left molar. Mild generalized erythema around gum base. Neck: Normal range of motion, no tenderness, supple, no stridor. [] Cardiovascular:Heart rate regular rhythm, no murmur [] Lungs & Thorax: Bilateral breath sounds clear to auscultation [] Neurologic: Alert and oriented X 3, no focal deficits noted. [] Psychologic: Affect normal, judgement normal, mood normal. [] Current Patient Data Vital Signs Vital Signs Date Time Temp Pulse Resp B/P (MAP) Pulse Ox O2 Delivery O2 Flow Rate FiO2 10/16/20 19:19 18 100 Room Air 10/16/20 18:50 97.3 56 138/79 (98) EKG EKG [] Radiology/Procedures Radiology/Procedures []R FOOT_RIGHT 3 VIEWS History: Reason: heel pain / Spl. Instructions: / History: Technique: 3 views right foot Comparison: None. Findings: Normal alignment. No fracture. Dorsal calcaneal views right. Mild ankle DJD. Medial foot soft tissue swelling. Impression: 1. No acute osseous abnormality. 2. Medial hind foot soft tissue swelling. Electronically signed by: Manoj Hughes DO (10/16/2020 7:17 PM) [facility] Heart Score C/O Chest Pain: No Risk Factors: Risk Factors: DM, Current or recent (<one month) smoker, HTN, HLP, family history of CAD, obesity. Risk Scores: Risk Factors: DM, Current or recent (<one month) smoker, HTN, HLP, family history of CAD, obesity. Course & Med Decision Making Course & Med Decision Making Patient is a 45-year-old male who presents with dental pain and heel pain Vital signs not concerning. Physical exam noted above. Patient given oral pain medication. Declined dental block. Antibiotic in the ED. Given contact information for free clinic/dentist and other local resources as well as emergency dental contact information. Discussed all findings with patient. Advised to call around first thing in the morning to find a dentist as he will need probable multiple extractions/root canals and discuss need for dentures/replacements. Gave return precautions to the ED. Patient grateful, verbalized understanding and agreed with plan of discharge. [] Dragon Disclaimer Dragon Disclaimer This electronic medical record was generated, in whole or in part, using a voice recognition dictation system. Departure Departure: Impression: Primary Impression: Pain, dental Additional Impression: Heel pain Disposition: HOME / SELF CARE / HOMELESS Condition: GOOD Referrals: AIMEE ORTIZ MD (PCP) Patient Instructions: Dental Pain, RICE - Routine Care for Injuries Additional Instructions: Thank you for coming into the emergency department today and allowing us to take care of you. Please read all of the attached information very carefully to go back over what we discussed. Please begin a Tylenol, ibuprofen and Orajel reg imen for your dental pain. You are given contact information for local free clinics and dentist as well as the information for emergency dentist. Please call first thing in the morning as you need to see a dentist quickly and discuss need for multiple extractions versus root canals and replacements. Please take all of your antibiotics as prescribed. Please come back to the ED with new or concerning symptoms as discussed. Please call the emergency dentist first thing in the morning at [phone] and schedule appointment as soon as possible Scripts Hydrocodone/Acetaminophen (Hydrocodone-Acetamin 5-325 mg) 1 Each Tablet 1 EACH PO BID for dental pain for 3 Days, #6 TAB Prov: ADENIKE THORPE MD 10/16/20 Amoxicillin/Potassium Clav (AUGMENTIN 875-125 TABLET) 1 Each Tablet 1 TAB PO BID for dental pain for 10 Days, #19 TAB 0 Refills Prov: ADENIKE THORPE MD 10/16/20 Problem Qualifiers ADENIKE THORPE MD Oct 16, 2020 20:26
== END 2020-10-16 20:38 | disposition home or self-care (01) ==
LOC: ER 18:29
DX: K02.9 Dental caries, unspecified (principal); M79.671 Pain in right foot; F17.210 Nicotine dependence, cigarettes, uncomplicated
CPT/HCPCS: 73630; 99284

== ENCOUNTER 2020-12-17 00:36 | Emergency (ER) | payer OTHER ==
[~2020-12-17] VITALS: Ht 180.3 cm; Wt 90.0 kg
[~2020-12-17 00:36] MED LIST changes: +AMOX1TAB61 PO
[2020-12-17 00:50] VITALS: BP 134/93
[2020-12-17] MEDS ORDERED: AMOX500C PO (00:50)
--- NOTE | 2020-12-17 00:51 | PHYS DOC ---
Past History Past Medical History: Other Additional Past Medical Histor: SCOLIOSIS Past Surgical History: No Surgical History Smoking: Cigarettes Alcohol Use: None Drug Use: None Adult General HPI HPI Patient is a 45-year-old male who presents with left lower dental pain for couple of days, 8 out of 10, sharp in nature. States he has poor dentition generally and has not seen a dentist in years. States this tooth started hurting a couple days ago and had had a chance to find a dentist yet. States he did just get insurance. Denies any fevers, pain or trouble swallowing, chest pain, shortness of breath, abdominal pain, nausea, vomiting. Review of Systems Review of Systems Review of systems otherwise unremarkable except noted in HPI Allergies Allergies Allergies Coded Allergies Type Severity Reaction Last Updated Verified No Known Drug Allergies 04/06/20 No Physical Exam Physical Exam Constitutional: Well developed, well nourished, no acute distress, non-toxic appearance. [] HENT: Normocephalic, atraumatic, bilateral external ears normal, oropharynx moist, no oral exudates, nose normal, poor dentition generally with multiple teeth, dental caries and need for extractions. Lower left tooth in question with large dental carry. [] Eyes: conjunctiva normal, no discharge. [] Neck: Normal range of motion, no tenderness, supple, no stridor. [] Neurologic: Alert and oriented X 3, normal motor function, normal sensory function, no focal deficits noted. [] Psychologic: Affect normal, judgement normal, mood normal. [] EKG EKG [] Radiology/Procedures Radiology/Procedures [] Heart Score C/O Chest Pain: N/A Risk Factors: Risk Factors: DM, Current or recent (<one month) smoker, HTN, HLP, family history of CAD, obesity. Risk Scores: Risk Factors: DM, Current or recent (<one month) smoker, HTN, HLP, family his tory of CAD, obesity. Course & Med Decision Making Course & Med Decision Making Patient is a 45-year-old male who presents with dental pain Vital signs not concerning. Physical exam noted above. Given antibiotics, and pain medicine in the ED. Given contact information for local dentist and emergency dentist and advised to call first thing in the morning. Gave return precautions to the ED. Patient grateful, verbalized understanding and agreed with plan of discharge. [] Dragon Disclaimer Dragon Disclaimer This electronic medical record was generated, in whole or in part, using a voice recognition dictation system. Departure Departure: Impression: Primary Impression: Pain, dental Disposition: HOME / SELF CARE / HOMELESS Condition: STABLE Referrals: AIMEE ORTIZ MD (PCP) Patient Instructions: Dental Pain Additional Instructions: Thank you for coming into the emergency department tonight and allowing us to take care of you. Please begin a Tylenol, ibuprofen and Orajel regimen as discussed. Please take all your antibiotics as prescribed. Please call the emergency dentist first thing in the morning at [phone] to set up an appointment as fast as possible to discuss need for root canal versus extraction. Please come back to ED with new or concerning symptoms as discussed. Scripts Amoxicillin (AMOXICILLIN) 500 Mg Capsule 1 CAP PO BID for dental pain for 10 Days, #20 CAP Prov: ADENIKE THORPE MD 12/17/20 ADENIKE THORPE MD Dec 17, 2020 00:50
[2020-12-17] MEDS ORDERED: AMOXICILLIN 250 MG CAPSULE PO ONE (01:00)
[2020-12-17] MEDS ORDERED: ACETAMINOPHEN 500 MG TABLET PO ONE (01:00)
== END 2020-12-17 01:15 | disposition home or self-care (01) ==
LOC: ER 00:36
DX: K02.9 Dental caries, unspecified (principal); K08.89 Other specified disorders of teeth and supporting structures; F17.210 Nicotine dependence, cigarettes, uncomplicated
CPT/HCPCS: 96372; 99283; J3010

== ENCOUNTER 2021-02-12 12:26 | Emergency (ER) | payer OTHER ==
[~2021-02-12] VITALS: Ht 180.3 cm; Wt 80.3 kg
[~2021-02-12 12:26] MED LIST changes: +AMOX500C PO; +TIZA-75 PO; -TIZA4TAB2 PO
[2021-02-12 12:35] VITALS: BP 128/92
[2021-02-12] MEDS ORDERED: HYDROcodone/APAP 5/325MG 1 TAB TABLET PO ONE (12:45)
--- NOTE | 2021-02-12 12:45 | PHYS DOC ---
Past History Past Medical History: Other Additional Past Medical Histor: SCOLIOSIS Past Surgical History: No Surgical History Smoking: Cigarettes Alcohol Use: None Drug Use: None General Adult EDM: Chief Complaint: Right hand pain HPI: HPI: Patient is a 45-year-old male with a history of osteoarthritis presenting with right lateral hand pain and swelling since this morning when he woke up at 830. He denies any known injury, bug bites, animal bite or skin puncture. He reports that the pain is dull and starts on the side of his right pinky and radiates up to his right wrist. He reports the pain is worse upon function of his fingers. He took ibuprofen this morning with little relief. Review of Systems: Review of Systems: Constitutional: Denies fever or chills Eyes: Denies redness or eye pain HENT: Denies nasal congestion or sore throat Respiratory: Denies cough or shortness of breath Cardiovascular: Denies chest pain or palpitations GI: Denies abdominal pain, nausea, or vomiting : Denies dysuria or hematuria Musculoskeletal: Denies back pain or joint pain Integument: Denies rash or skin lesions Neurologic: Denies headache, focal weakness or sensory changes Complete systems were reviewed and found to be within normal limits, except as documented in this note. Allergies: Allergies: Allergies Coded Allergies Type Severity Reaction Last Updated Verified No Known Drug Allergies 04/06/20 No Physical Exam: PE: Constitutional: Well developed, well nourished, no acute distress, non-toxic appearance HENT: Normocephalic, atraumatic Eyes: PERRL, EOMI, conjunctiva normal, no discharge Neck: Normal range of motion, no tenderness, supple Lungs & Thorax: No respiratory distress, equal chest rise and fall Abdomen: Soft, no tenderness Skin: Warm, dry, no erythema, no rash Back: No tenderness, no CVA tenderness Extremities: Swelling noted to the lateral 5th metacarpal along with ecchymosis on anterior hand. Tenderness to palpation of 5th metatarsal. ROM intact b/l. +2 radial pulses b/l. Neurologic: Alert and oriented X 3, normal motor function, normal sensory function, no focal deficits noted Psychologic: Affect normal, judgment normal EKG: EKG: [] Radiology/Procedures: Radiology/Procedures: [] Heart Score: C/O Chest Pain: No Course & Med Decision Making: Course & Med Decision Making Pertinent Labs and Imaging studies reviewed. (See chart for details) Patient is a 45-year-old male with past medical history of osteoarthritis presenting for right hand pain. Patient was given ice pack to ice hand. X-ray showed nondisplaced fracture of right fifth metacarpal neck. Ulnar gutter splint placed. Patient was given dose of hydrocodone here in the ED with improvement in pain. Will give referral for Ortho follow-up and provide prescription of hydrocodone for pain. Provided patient education on RICE. Anika blue stable for discharge with outpatient follow-up with PCP. Discussed findings and plan with patient, who acknowledges understanding and agreement. Dragon Disclaimer: Dragon Disclaimer: This electronic medical record was generated, in whole or in part, using a voice recognition dictation system. Splinting Splinting : Location: right hand Hand-Made Type: orthoglass Splint: ulnar Pre-Proc Neuro Vasc Exam: normal Post-Proc Neuro Vasc Exam: normal, unchanged from pre-exam Departure Departure: Impression: Primary Impression: Metacarpal bone fracture Qualified Codes: S62.366A - Nondisplaced fracture of neck of fifth metacarpal bone, right hand, initial encounter for closed fracture Disposition: HOME / SELF CARE / HOMELESS Condition: STABLE Referrals: AIMEE ORTIZ MD (PCP) BEN CHAVARRIA MD Patient Instructions: Hand Fracture, Fifth Metacarpal, RICE - Routine Care for Injuries, Splint Care, [id number] Scripts Hydrocodone Bit/Acetaminophen (HYDROCODONE-APAP 5-325 ) 1 Each Tablet 0.5-1 TAB PO PRN Q6HRS PRN for PAIN, #14 TAB 0 Refills Prov: NGA OLVERA DO 02/12/21 NGA OLVERA DO Feb 12, 2021 12:45
[2021-02-12] MEDS ORDERED: HYDR-2155 PO (13:11)
--- NOTE | 2021-02-12 13:42 | RAD ---
EXAM: Right hand, 3 views. HISTORY: Pain. COMPARISON: None. FINDINGS: 3 views of the right there is a nondisplaced oblique fracture of the mid to distal fifth me tacarpal. There is a tiny corticated ossicle adjacent to the first interphalangeal joint. IMPRESSION: Oblique nondisplaced fracture of the fifth metacarpal. Electronically signed by: Sarah Zendejas MD (02/12/2021 1:40 PM) [id number]
== END 2021-02-12 13:20 | disposition home or self-care (01) ==
LOC: ER 12:26
DX: S62.336A Displaced fracture of neck of fifth metacarpal bone, right hand, initial encounter for closed fracture (principal); M19.90 Unspecified osteoarthritis, unspecified site; F17.210 Nicotine dependence, cigarettes, uncomplicated; X58.XXXA Exposure to other specified factors, initial encounter; Y93.89 Activity, other specified; Y92.89 Other specified places as the place of occurrence of the external cause; Y99.8 Other external cause status
CPT/HCPCS: 29125; 73130; 99283

== ENCOUNTER 2021-02-20 20:56 | Emergency (ER) | payer OTHER ==
[~2021-02-20] VITALS: Ht 180.3 cm; Wt 80.3 kg
[~2021-02-20 20:56] MED LIST changes: +HYDR-2155 PO
[2021-02-20] MEDS ORDERED: IBUPROFEN 600 MG TABLET. PO ONE ×2 (21:15→21:22)
--- NOTE | 2021-02-20 21:38 | RAD ---
Exam: Right hand 3 views INDICATION: Fracture, recent injury TECHNIQUE: Frontal, lateral oblique views of the right hand Comparisons: None FINDINGS: Redemonstration of a obliquely oriented fracture at the distal fifth metacarpal. Fracture lucencies s till evident with mild increased displacement of the fracture site. No new fractures are seen. Joint spaces are well-maintained. Bone mineralization is normal. IMPRESSION: Minimally increased displacement at the distal fifth metacarpal fracture with fracture lucency still evident. Electronically signed by: Isac Jacobs MD (02/20/2021 9:35 PM) [facility]
--- NOTE | 2021-02-20 21:53 | PHYS DOC ---
Past History Past Medical History: Other Additional Past Medical Histor: SCOLIOSIS (TAMMY PARTIDA) Past Surgical History: No Surgical History (TAMMY PARTIDA) Smoking: Cigarettes Alcohol Use: None Drug Use: None (TAMMY PARTIDA) General Adult EDM: Chief Complaint: HAND PROBLEM HPI: HPI: Patient is a 45 year old male who presents with worsening right hand pain. Patient states that he was diagnosed with 1/5 metacarpal boxer's fracture a week ago yesterday. 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 He states that he was using a hammer all day and now has increased pain at the site of his fracture. He states that he removed the splint after it "started coming off anyway." He reports that he has attempted to call the orthopedic doctor to whom he was referred, but the office is not answering his calls. Patient last took 800 mg ibuprofen 4-5 hours ago. Patient has no other complaints at this time. (TAMMY PARTIDA) Review of Systems: Review of Systems: ROS negative except as mentioned in HPI. (TAMMY PARTIDA) Current Medications: Current Meds: Current Medications Medications (Trade) Dose Ordered Sig/Scotty Start Time Stop Time Status Last Admin Dose Admin Ibuprofen (Motrin) 600 mg STK-MED ONCE 02/20/21 21:22 02/20/21 21:27 DC (TAMMY PARTIDA) Allergies: Allergies: Allergies Coded Allergies Type Severity Reaction Last Updated Verified No Known Drug Allergies 02/12/21 No (TAMMY PARTIDA) Physical Exam: PE: Constitutional: Well developed, well nourished, no acute distress, non-toxic appearance. Cardiovascular: Heart rate regular rhythm, no murmur. Lungs & Thorax: Bilateral breath sounds clear to auscultation. Skin: Warm, dry, no erythema, no rash, no abrasion, no laceration. Extremities: Medial aspect of right hand exquisitely tender to palpation, range of motion intact but painful. Extremities otherwise no tenderness, no cyanosis, no clubbing, ROM intact, no edema. (TAMMY PARTIDA) Current Patient Data: Vital Signs: VS - Last 72 Hours, by Label Date Time Temp Pulse Resp B/P (MAP) Pulse Ox O2 Delivery O2 Flow Rate FiO2 02/20/21 22:10 97.6 65 18 108/72 (84) 100 Room Air (TAMMY PARTIDA) Radiology/Procedures: Radiology/Procedures: PROCEDURE: HAND RIGHT 3V Exam: Right hand 3 views INDICATION: Fracture, recent injury TECHNIQUE: Frontal, lateral oblique views of the right hand Comparisons: None FINDINGS: Redemonstration of a obliquely oriented fracture at the distal fifth metacarpal. Fracture lucencies still evident with mild increased displacement of the fracture site. No new fractures are seen. Joint spaces are well-maintained. Bone mineralization is normal. IMPRESSION: Minimally increased displacement at the distal fifth metacarpal fracture with fracture lucency still evident. Electronically signed by: Isac Jacobs MD (02/20/2021 9:35 PM) [facility] (TAMMY PARTIDA) Heart Score: C/O Chest Pain: No (TAMMY PARTIDA) Course & Med Decision Making: Course & Med Decision Making Pertinent Labs and Imaging studies reviewed. (See chart for details) In reviewing prior films, it seems that the fracture is now more displaced. Patient will be resplinted and given Ortho follow-up information again. Patient will be strongly encouraged to follow-up with orthopedic for further evaluation and definitive treatment, as if the fracture continues to get worse he could risk use of his hand entirely. Patient understands and is agreeable to discharge plan. (TAMMY PARTIDA) Dragon Disclaimer: Dragon Disclaimer: This electronic medical record was generated, in whole or in part, using a voice recognition dictation system. (TAMMY PARTIDA) Splinting Patient informed of findings. Ulnar gutter splint and sling applied by nursing staff. The splint is checked by me, with appropriate stabilization of the injury. Distal capillary refill less than 2 seconds and distal neurologic function intact. (TAMMY PARTIDA) Splinting : Location: Right hand Hand-Made Type: orthoglass Splint: ulnar Pre-Proc Neuro Vasc Exam: normal Post-Proc Neuro Vasc Exam: normal, unchanged from pre-exam (NGA OLVERA DO) Departure Departure: Impression: Primary Impression: Boxer's fracture with delayed healing Qualified Codes: S62.339G - Displaced fracture of neck of unspecified metacarpal bone, subsequent encounter for fracture with delayed healing Additional Impression: Ayush's fracture with nonunion Qualified Codes: S62.339K - Displaced fracture of neck of unspecified metacarpal bone, subsequent encounter for fracture with nonunion Disposition: HOME / SELF CARE / HOMELESS Condition: STABLE Referrals: AIMEE ORTIZ MD (PCP) CHER VELÁZQUEZ II, MD Patient Instructions: Boxer's Fracture Additional Instructions: Please leave the splint placed on your hand today on your arm until you are able to follow-up with orthopedic doctors. As discussed, it is extremely important for you to follow-up, as if the fracture gets worse it can become unrepairable, and you could lose function of your hand. Please return to the emergency depart ment if you have worsening pain or develop new symptoms. Attending Signature Attending Signature I have reviewed the PA/ASSISTANT ATHLETIC TRAINER's note and plan of care. I was available for consultation as needed during the patient's visit in the emergency department. I agree with the clinical impression, plan, and disposition. (NGA OLVERA DO) Attending Signature I have participated in the care of this patient and I have reviewed and agree with all pertinent clinical information above including history, exam, and recommendations. (TAMMY PARTIDA) TAMMY PARTIDA Feb 20, 2021 21:53 NGA OLVERA DO Feb 20, 2021 23:35
[2021-02-20 22:10] VITALS: BP 108/72
== END 2021-02-20 22:13 | disposition home or self-care (01) ==
LOC: ER 20:56
DX: S62.306G Unspecified fracture of fifth metacarpal bone, right hand, subsequent encounter for fracture with delayed healing (principal); F17.210 Nicotine dependence, cigarettes, uncomplicated; X58.XXXD Exposure to other specified factors, subsequent encounter
CPT/HCPCS: 29125; 73130; 99283-25

== ENCOUNTER 2021-07-24 17:41 | Emergency (ER) | payer OTHER ==
[~2021-07-24] VITALS: Ht 180.3 cm; Wt 80.3 kg
[2021-07-24 17:51] VITALS: BP 136/86
--- NOTE | 2021-07-24 18:00 | PHYS DOC ---
Past History Past Medical History: Other Additional Past Medical Histor: SCOLIOSIS (YVETTE BOURNE APRN) Past Surgical History: No Surgical History (YVETTE BOURNE APRN) Smoking: Cigarettes Alcohol Use: None Drug Use: None (YVETTE BOURNE APRN) General Adult EDM: Chief Complaint: HAND PROBLEM HPI: HPI: Patient is a 46-year-old male who presents to the emergency department for hand pain. 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 He denies hitting his hand or crushing it with a sledgehammer. He reports that most of his pain is located on the dorsal aspect of his right hand proximal to his fifth finger. He reports that he previously broke that area of his hand in the fall of last year. Patient rates his pain 7 out of 10. He took 1 tablet of ibuprofen prior to arrival. Patient denies any wounds, decreased range of motion or decreased sensation in his hand. (YVETTE BOURNE APRN) Review of Systems: Review of Systems: Musculoskeletal: See HPI Integument: See HPI Neurologic: See HPI (YVETTE BOURNE APRN) Allergies: Allergies: Allergies Coded Allergies Type Severity Reaction Last Updated Verified No Known Drug Allergies 02/12/21 No (YVETTE BOURNE APRN) Physical Exam: PE: Constitutional: Well developed, well nourished, no acute distress, non-toxic appearance. [] HENT: Normocephalic, atraumatic, bilateral external ears normal, oropharynx moist, no oral exudates, nose normal. [] Eyes: PERRL, EOMI, conjunctiva normal, no discharge. [] Neck: Normal range of motion, no stridor Cardiovascular: Normal peripheral perfusion Lungs & Thorax: Normal work of breathing, no tachypnea Abdomen: Soft and flat Skin: Warm, dry, no erythema, no rash. [] Back: Normal range of motion Extremities: No tenderness, no cyanosis, no clubbing, ROM intact, no edema. [] Right hand: Pain with palpation to the dorsal aspect of patient's right hand proximal to his fifth finger, normal range of motion, no swelling, neuro intact, no obvious deformity, no wounds or ecchymosis Neurologic: Alert and oriented X 3, normal motor function, normal sensory function, no focal deficits noted. [] Psychologic: Affect normal, judgement normal, mood normal. [] (YVETTE BOURNE APRN) EKG: EKG: [] (YVETTE BOURNE APRN) Radiology/Procedures: Radiology/Procedures: []REASON: hand pain post injury-MEDIAL PAIN PROCEDURE: HAND RIGHT 3V XR HAND_RIGHT 3 VIEWS DATE: 07/24/2021 6:05 PM INDICATION: hand pain post injury-MEDIAL PAIN COMPARISON: 02/12/2021. FINDINGS: Bones: No acute fracture. Healed fifth distal metacarpal fracture. Joints: The joint spaces are normal. Miscellaneous: None. IMPRESSION: No acute fracture. Electronically signed by: Fani Fernandez MD (07/24/2021 6:44 PM) [facility] DICTATED AND SIGNED BY: FANI FERNANDEZ MD DATE: 07/24/211842 CC: YVETTE BOURNE APRN; AIMEE ORTIZ MD ~ (YVETTE BOURNE APRN) Heart Score: C/O Chest Pain: N/A Risk Factors: Risk Factors: DM, Current or recent (<one month) smoker, HTN, HLP, family history of CAD, obesity. Risk Scores: Score 0 - 3: 2.5% MACE over next 6 weeks - Discharge Home Score 4 - 6: 20.3% MACE over next 6 weeks - Admit for Clinical Observation Score 7 - 10: 72.7% MACE over next 6 weeks - Early Invasive Strategies (YVETTE BOURNE APRN) Course & Med Decision Making: Course & Med Decision Making Pertinent Labs and Imaging studies reviewed. 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 X- rays were performed showed no acute findings. Patient's hand placed in Sanchez wrap. Patient educated on rice protocol. Advised to take Tylenol and ibuprofen for pain. Motion intact, neuro intact. I discussed with patient all findings and diagnostic testing as well as the need to follow-up with PCP for further evaluation and treatment or return to the ER if any new or worsening symptoms. Strict return precautions were also discussed at length. Patient voiced understanding and agreement with the plan. Patient is hemodynamically stable at the time of disposition. (YVETTE BOURNE APRN) Course & Med Decision Making Did not see or evaluate patient. Did not discuss patient with [facility]NACE [facility]TER. Generally agree with FURNACE SETTER's work-up and disposition per note. (ADENIKE THORPE MD) Dragon Disclaimer: Dragon Disclaimer: This electronic medical record was generated, in whole or in part, using a voice recognition dictation system. (YVETTE BOURNE APRN) Departure Departure: Impression: Primary Impression: Hand pain Qualified Codes: M79.641 - Pain in right hand Disposition: HOME / SELF CARE / HOMELESS Condition: GOOD Referrals: AIMEE ORTIZ MD (PCP) Patient Instructions: RICE - Routine Care for Injuries Additional Instructions: You are seen in the emergency department for hand pain. An x-ray is performed that showed no acute fracture. Your hand was placed in Sanchez wrap to help with comfort. You can apply ice and elevate if you have any swelling. Take Tylenol and ibuprofen at home for any pain. Follow-up with your primary care provider tomorrow regarding your ER visit. Return to the emergency department if you develop any new injuries, decreased range of motion or decreased sensation in your hand. YVETTE BOURNE APRN Jul 24, 2021 18:00 ADENIKE THORPE MD Jul 24, 2021 20:49
--- NOTE | 2021-07-24 18:47 | RAD ---
XR HAND_RIGHT 3 VIEWS DATE: 07/24/2021 6:05 PM INDICATION: hand pain post injury-MEDIAL PAIN COMPARISON: 02/12/2021. FINDINGS: Bones: No acute fracture. Healed fifth distal metacarpal fracture. Joints: The joint spaces are normal. Miscellaneous: None. IMPRESSION: No acute fracture. Electronically signed by: Marlon Fernandez MD (07/24/2021 6:44 PM) [facility]
[2021-07-24] MEDS ORDERED: HYDROcodone/APAP 5/325MG 1 TAB TABLET PO ONE (19:00)
== END 2021-07-24 19:07 | disposition home or self-care (01) ==
LOC: ER 17:41
DX: M79.641 Pain in right hand (principal); F17.210 Nicotine dependence, cigarettes, uncomplicated
CPT/HCPCS: 73130; 99283